=== PATIENT | male | born 1985 | race Caucasian/White ===

== ENCOUNTER 2023-10-02 19:40 | Emergency (ER) | payer OTHER ==
[~2023-10-02] VITALS: Ht 172.7 cm; Wt 79.4 kg
[~2023-10-02 19:40] MED LIST: AMOXICILLIN500 MG PO; ANTIBIOTIC; CLARITIN10 MG PO; CLEOCIN150 MG PO; DARVOCET N 1001 TAB PO; KEFLEX500 MG PO; MOTRIN400 MG PO; MOTRIN800 MG PO; MOUTH RINSE; NAPROSYN500 MG; NAPROSYN500 MG PO; NEURONTIN100 MG PO; ROBAXIN750 MG PO; SEPTRA DS 800 M1 TAB PO; SLEEPING AID25 MG PO; VICODIN 500 MG-1 TAB PO; VISTARIL25 MG PO
[2023-10-02] MEDS ORDERED: CEPHALEXIN500 M1 PO (23:25)
== END 2023-10-03 00:01 | disposition home or self-care (01) ==
LOC: ED 19:40
DX: S09.8XXA Other specified injuries of head, initial encounter (principal); Z87.891 Personal history of nicotine dependence; W10.8XXA Fall (on) (from) other stairs and steps, initial encounter; Y93.89 Activity, other specified; Y92.009 Unspecified place in unspecified non-institutional (private) residence as the place of occurrence of the external cause; Y99.8 Other external cause status

== ENCOUNTER 2023-10-19 00:58 | Emergency (ER) | payer OTHER ==
[~2023-10-19] VITALS: Ht 175.2 cm; Wt 77.1 kg
[~2023-10-19 00:58] MED LIST changes: +CEPHALEXIN500 M1 PO
[2023-10-19] MEDS ORDERED: CEPHALEXIN500 M1 PO (02:17)
[2023-10-19] MEDS ORDERED: VIBRAMYCIN100 MG PO (02:17)
[2023-10-19] MEDS ORDERED: CEPHALEXIN 500 MG CAP PO ONE (02:20)
[2023-10-19] MEDS ORDERED: Doxycycline Hyclate 100 MG CAP PO ONE (02:20)
== END 2023-10-19 02:35 | disposition home or self-care (01) ==
LOC: ED 00:58
DX: L73.9 Follicular disorder, unspecified (principal); Z87.891 Personal history of nicotine dependence